=== PATIENT | male | born 1975 | race Caucasian/White ===

== ENCOUNTER 2020-09-25 07:16 | Inpatient (IN) | payer BC ==
[2020-09-25 07:58] LABS: #Monocytes 0.2 10x3/uL (0.0-1.1); #Neutrophils 3.4 10x3/uL (1.5-8.4); %Basophils 0.2 % (0.0-2.0); %Lymphocytes 32.2 % (18.0-47.0); %Monocytes 2.9 % (0.0-10.0); %Neutrophils 64.3 % (40.0-75.0); Hemoglobin 14.9 g/dL (13.5-17.5); Mean Corpuscular HGB CONC 33.6 g/dL (32.0-36.0); Mean Corpuscular Volume 86.4 fl (81.2-95.1); Mean Platelet Volume 11.6 fl (7.4-10.4); Platelet Count 142 10x3/uL (150-450); RBC Distribution Width 13.5 % (11.5-14.5); Red Blood Cell (RBC) Count 5.14 10x6/uL (4.32-5.72); White Blood Cell (WBC) Count 5.3 10x3/uL (3.5-10.5)
[2020-09-25 08:09] LABS: ALT (SGPT) 66 U/L (8-55); AST (SGOT) 60 U/L (5-34); Albumin 4.1 g/dL (3.5-5.0); Alkaline Phosphatase 61 U/L (40-110); Anion Gap 20 mmol/L (10-20); BUN (Urea Nitrogen) 42 mg/dL (8.9-20.6); Bilirubin, Total 0.4 mg/dL (0.2-1.2); Calc. Creatinine Clearance 0 mL/min (70-130); Calcium 8.9 mg/dL (7.8-10.44); Carbon Dioxide 20 mmol/L (22-29); Chloride 101 mmol/L (98-107); Glucose 221 mg/dL (70-105); Protein, Total 7.1 g/dL (6.0-8.3); Sodium 136 mmol/L (136-145)
[2020-09-25] MEDS ORDERED: Ascorbic Acid 500 mg Chewable Tablet PO SCH (13:00)
[2020-09-25] MEDS ORDERED: Zinc Sulfate 220 MG CAP PO SCH (13:00)
[2020-09-25] MEDS ORDERED: Heparin 5,000 UNITS/ML VIAL SC SCH (13:00)
[2020-09-25] MEDS ORDERED: Thiamine 100 MG TAB PO SCH (13:00)
[2020-09-25] MEDS ORDERED: Cholecalciferol (Vitamin D3) 400 UNITS TAB PO SCH (13:00)
[2020-09-25] MEDS: Dexamethasone Sod Phosphate 6 MG in Sodium Chloride 0.9% 50 ML IVPB SCH (14:42)
[2020-09-25 17:15] LABS: Hemoglobin A1c 7.5 % (4.0-6.0)
[2020-09-25] MEDS ORDERED: Dextrose 50% Abboject 50 ML SYRINGE SLOW IVP PRN (17:38)
[2020-09-25] MEDS ORDERED: Insulin Regular 300 UNITS/3 ML VIAL SC PRN (17:38)
[2020-09-25] MEDS ORDERED: Dextrose 5% in Water 1,000 ML IV PRN (17:38)
[2020-09-25] MEDS ORDERED: TADALAFIL 2.5 MG PO PRN (18:18)
[2020-09-25] MEDS: Famotidine/PF 20 mg/2ml Vial SLOW IVP SCH (20:39)
[2020-09-25] MEDS: Heparin 5,000 UNITS/ML VIAL SC SCH (20:55)
[2020-09-25] MEDS ORDERED: guaiFENesin/DM ER PO SCH (21:00)
[2020-09-25] MEDS: Insulin Regular 300 UNITS/3 ML VIAL SC PRN (22:20)
[2020-09-25] MEDS: Acetaminophen 325 MG TAB PO PRN (22:20)
[2020-09-25] MEDS: Guaifenesin DM 100-10/5 ML UDCUP PO PRN (22:23)
[2020-09-26] MEDS: HumaLOG 300 UNITS/3 ML VIAL SC PRN ×4 (05:30→21:40)
[2020-09-26 05:49] LABS: Anion Gap 16 mmol/L (10-20); BUN (Urea Nitrogen) 39 mg/dL (8.9-20.6); Calc. Creatinine Clearance 61 mL/min (70-130); Calcium 8.5 mg/dL (7.8-10.44); Carbon Dioxide 19 mmol/L (22-29); Chloride 103 mmol/L (98-107); Glucose 338 mg/dL (70-105); Potassium 5.2 mmol/L (3.5-5.1); Sodium 133 mmol/L (136-145)
[2020-09-26] MEDS ORDERED: REMDESIVIR 200 MG in Sodium Chloride 0.9% 250 ML 210 ML IV SCH (09:00)
[2020-09-26] MEDS: Zinc Sulfate 220 MG CAP PO SCH (09:18)
[2020-09-26] MEDS: Atorvastatin Calcium 20 MG TAB PO SCH (09:18)
[2020-09-26] MEDS: Ascorbic Acid 500 mg Chewable Tablet PO SCH (09:18)
[2020-09-26] MEDS: Thiamine 100 MG TAB PO SCH (09:18)
[2020-09-26] MEDS: Famotidine/PF 20 mg/2ml Vial SLOW IVP SCH ×2 (09:18→20:24)
[2020-09-26] MEDS: Heparin 5,000 UNITS/ML VIAL SC SCH ×3 (09:19→20:23)
[2020-09-26] MEDS: Cholecalciferol (Vitamin D3) 400 UNITS TAB PO SCH (09:19)
[2020-09-26] MEDS: Dexamethasone Sod Phosphate 6 MG in Sodium Chloride 0.9% 50 ML IVPB SCH (14:50)
[2020-09-26] MEDS ORDERED: guaiFENesin/DM ER PO SCH (21:00)
[2020-09-26] MEDS: Insulin Regular 300 UNITS/3 ML VIAL SC PRN (21:10)
[2020-09-26] MEDS ORDERED: Sodium Chloride 0.9% 500 ML IVPB SCH (23:30)
[2020-09-26] MEDS ORDERED: Insulin Regular 300 UNITS/3 ML VIAL SC SCH (23:45)
[2020-09-26] MEDS: Guaifenesin DM 100-10/5 ML UDCUP PO PRN (23:49)
[2020-09-27] MEDS ORDERED: HumaLOG 300 UNITS/3 ML VIAL SC SCH (03:45)
[2020-09-27 08:14] LABS: Anion Gap 17 mmol/L (10-20); BUN (Urea Nitrogen) 39 mg/dL (8.9-20.6); Calc. Creatinine Clearance 69 mL/min (70-130); Calcium 8.8 mg/dL (7.8-10.44); Carbon Dioxide 21 mmol/L (22-29); Chloride 105 mmol/L (98-107); Glucose 193 mg/dL (70-105); Potassium 4.5 mmol/L (3.5-5.1); Sodium 138 mmol/L (136-145)
[2020-09-27] MEDS: Acetaminophen 325 MG TAB PO PRN ×2 (08:37→15:32)
[2020-09-27] MEDS: Cholecalciferol (Vitamin D3) 400 UNITS TAB PO SCH (08:37)
[2020-09-27] MEDS: Thiamine 100 MG TAB PO SCH (08:38)
[2020-09-27] MEDS: Atorvastatin Calcium 20 MG TAB PO SCH (08:38)
[2020-09-27] MEDS: Ascorbic Acid 500 mg Chewable Tablet PO SCH (08:38)
[2020-09-27] MEDS: Famotidine/PF 20 mg/2ml Vial SLOW IVP SCH ×2 (08:38→20:52)
[2020-09-27] MEDS: Heparin 5,000 UNITS/ML VIAL SC SCH ×3 (08:38→20:52)
[2020-09-27] MEDS: Zinc Sulfate 220 MG CAP PO SCH (08:41)
[2020-09-27] MEDS: guaiFENesin/DM ER PO SCH (08:43)
[2020-09-27] MEDS: REMDESIVIR 100 MG in Sodium Chloride 0.9% 250 ML 230 ML IV SCH (10:09)
[2020-09-27] MEDS: HumaLOG 300 UNITS/3 ML VIAL SC PRN (13:39)
[2020-09-27] MEDS: Dexamethasone Sod Phosphate 6 MG in Sodium Chloride 0.9% 50 ML IVPB SCH (13:48)
[2020-09-27] MEDS ORDERED: Lantus 1000 UNITS/10 ML VIAL SC SCH ×2 (15:30→21:00)
[2020-09-27] MEDS: Guaifenesin DM 100-10/5 ML UDCUP PO PRN ×2 (15:32→20:52)
[2020-09-27] MEDS: Insulin Regular 300 UNITS/3 ML VIAL SC PRN (21:00)
[2020-09-28] MEDS: guaiFENesin/DM ER PO SCH ×3 (00:30→20:48)
[2020-09-28] MEDS: Guaifenesin DM 100-10/5 ML UDCUP PO PRN ×2 (04:30→09:14)
[2020-09-28] MEDS ORDERED: HumaLOG 300 UNITS/3 ML VIAL SC SCH (05:00)
[2020-09-28 05:52] LABS: Anion Gap 18 mmol/L (10-20); BUN (Urea Nitrogen) 37 mg/dL (8.9-20.6); Calc. Creatinine Clearance 72 mL/min (70-130); Carbon Dioxide 19 mmol/L (22-29); Chloride 103 mmol/L (98-107); Glucose 362 mg/dL (70-105); Potassium 4.7 mmol/L (3.5-5.1); Sodium 135 mmol/L (136-145)
[2020-09-28 05:53] LABS: Calcium 8.9 mg/dL (7.8-10.44)
[2020-09-28] MEDS: Benzonatate 100 MG CAP PO PRN (07:30)
[2020-09-28] MEDS: REMDESIVIR 100 MG in Sodium Chloride 0.9% 250 ML 230 ML IV SCH (09:14)
[2020-09-28] MEDS: Ascorbic Acid 500 mg Chewable Tablet PO SCH (09:15)
[2020-09-28] MEDS: Zinc Sulfate 220 MG CAP PO SCH (09:15)
[2020-09-28] MEDS: Famotidine/PF 20 mg/2ml Vial SLOW IVP SCH ×2 (09:15→20:47)
[2020-09-28] MEDS: Heparin 5,000 UNITS/ML VIAL SC SCH ×3 (09:15→21:00)
[2020-09-28] MEDS: Thiamine 100 MG TAB PO SCH (09:15)
[2020-09-28] MEDS: Cholecalciferol (Vitamin D3) 400 UNITS TAB PO SCH (09:15)
[2020-09-28] MEDS: Atorvastatin Calcium 20 MG TAB PO SCH (09:15)
[2020-09-28] MEDS: Lantus 1000 UNITS/10 ML VIAL SC SCH (09:15)
[2020-09-28] MEDS: Dexamethasone Sod Phosphate 6 MG in Sodium Chloride 0.9% 50 ML IVPB SCH (12:08)
[2020-09-28] MEDS: Insulin Regular 300 UNITS/3 ML VIAL SC PRN (21:05)
[2020-09-29] MEDS ORDERED: Insulin Regular 300 UNITS/3 ML VIAL IVP SCH (01:45)
[2020-09-29] MEDS: HumaLOG 300 UNITS/3 ML VIAL SC PRN ×3 (05:00→20:48)
[2020-09-29 06:04] LABS: Anion Gap 16 mmol/L (10-20); BUN (Urea Nitrogen) 35 mg/dL (8.9-20.6); Calc. Creatinine Clearance 87 mL/min (70-130); Calcium 9.3 mg/dL (7.8-10.44); Carbon Dioxide 21 mmol/L (22-29); Chloride 103 mmol/L (98-107); Glucose 283 mg/dL (70-105); Potassium 4.5 mmol/L (3.5-5.1); Sodium 135 mmol/L (136-145)
[2020-09-29] MEDS: Atorvastatin Calcium 20 MG TAB PO SCH (09:12)
[2020-09-29] MEDS: guaiFENesin/DM ER PO SCH ×2 (09:12→20:33)
[2020-09-29] MEDS: Guaifenesin DM 100-10/5 ML UDCUP PO PRN ×2 (09:12→14:06)
[2020-09-29] MEDS: Zinc Sulfate 220 MG CAP PO SCH (09:12)
[2020-09-29] MEDS: Cholecalciferol (Vitamin D3) 400 UNITS TAB PO SCH (09:12)
[2020-09-29] MEDS: Ascorbic Acid 500 mg Chewable Tablet PO SCH (09:12)
[2020-09-29] MEDS: Heparin 5,000 UNITS/ML VIAL SC SCH ×3 (09:12→20:35)
[2020-09-29] MEDS: Thiamine 100 MG TAB PO SCH (09:12)
[2020-09-29] MEDS: Lantus 1000 UNITS/10 ML VIAL SC SCH (09:12)
[2020-09-29] MEDS: REMDESIVIR 100 MG in Sodium Chloride 0.9% 250 ML 230 ML IV SCH (09:13)
[2020-09-29] MEDS: Famotidine/PF 20 mg/2ml Vial SLOW IVP SCH ×2 (09:14→20:33)
[2020-09-29] MEDS ORDERED: Lantus 1000 UNITS/10 ML VIAL SC SCH (12:30)
[2020-09-29] MEDS: Dexamethasone Sod Phosphate 6 MG in Sodium Chloride 0.9% 50 ML IVPB SCH (14:03)
[2020-09-29] MEDS ORDERED: Melatonin 3 MG TAB PO SCH (23:30)
[2020-09-30] MEDS ORDERED: diphenhydrAMINE 25 MG CAP PO SCH ×2 (04:45→21:00)
[2020-09-30] MEDS: Zinc Sulfate 220 MG CAP PO SCH (09:26)
[2020-09-30] MEDS: Ascorbic Acid 500 mg Chewable Tablet PO SCH (09:26)
[2020-09-30] MEDS: Cholecalciferol (Vitamin D3) 400 UNITS TAB PO SCH (09:26)
[2020-09-30] MEDS: Thiamine 100 MG TAB PO SCH (09:27)
[2020-09-30] MEDS: Famotidine/PF 20 mg/2ml Vial SLOW IVP SCH ×2 (09:27→20:54)
[2020-09-30] MEDS: Atorvastatin Calcium 20 MG TAB PO SCH (09:27)
[2020-09-30] MEDS: Heparin 5,000 UNITS/ML VIAL SC SCH ×3 (09:27→20:55)
[2020-09-30] MEDS: REMDESIVIR 100 MG in Sodium Chloride 0.9% 250 ML 230 ML IV SCH (09:27)
[2020-09-30] MEDS: guaiFENesin/DM ER PO SCH ×2 (09:28→20:55)
[2020-09-30] MEDS: Lantus 1000 UNITS/10 ML VIAL SC SCH (09:28)
[2020-09-30 10:26] LABS: Hemoglobin 14.9 g/dL (13.5-17.5); Mean Corpuscular HGB CONC 34.1 g/dL (32.0-36.0); Mean Corpuscular Hemoglobin 28.6 pg (27.0-33.0); Mean Corpuscular Volume 83.9 fl (81.2-95.1); Mean Platelet Volume 10.5 fl (7.4-10.4); Platelet Count 353 10x3/uL (150-450); RBC Distribution Width 13.3 % (11.5-14.5); Red Blood Cell (RBC) Count 5.21 10x6/uL (4.32-5.72); White Blood Cell (WBC) Count 5.9 10x3/uL (3.5-10.5)
[2020-09-30 10:40] LABS: Anion Gap 16 mmol/L (10-20); BUN (Urea Nitrogen) 37 mg/dL (8.9-20.6); Calc. Creatinine Clearance 85 mL/min (70-130); Calcium 9.4 mg/dL (7.8-10.44); Carbon Dioxide 20 mmol/L (22-29); Chloride 105 mmol/L (98-107); Glucose 254 mg/dL (70-105); Potassium 4.2 mmol/L (3.5-5.1); Sodium 137 mmol/L (136-145)
[2020-09-30 11:45] LABS: Lymphocytes 11 % (21-51); Monocytes 9 % (0-10); Neutrophil 76 % (42-75); Reactive Lymphocytes 4 % (0-10)
[2020-09-30 11:55] LABS: MDiff Complete? YES; Manual Diff?? YES
[2020-09-30] MEDS: Dexamethasone Sod Phosphate 6 MG in Sodium Chloride 0.9% 50 ML IVPB SCH (14:34)
[2020-09-30] MEDS: HumaLOG 300 UNITS/3 ML VIAL SC PRN ×2 (19:00→21:08)
[2020-10-01 06:29] LABS: Hemoglobin 15.1 g/dL (13.5-17.5); Mean Corpuscular HGB CONC 34.1 g/dL (32.0-36.0); Mean Corpuscular Hemoglobin 28.7 pg (27.0-33.0); Mean Corpuscular Volume 84.1 fl (81.2-95.1); Mean Platelet Volume 10.4 fl (7.4-10.4); Platelet Count 416 10x3/uL (150-450); RBC Distribution Width 13.3 % (11.5-14.5); Red Blood Cell (RBC) Count 5.27 10x6/uL (4.32-5.72); White Blood Cell (WBC) Count 6.6 10x3/uL (3.5-10.5)
[2020-10-01] MEDS: HumaLOG 300 UNITS/3 ML VIAL SC PRN ×4 (06:33→21:14)
[2020-10-01 06:40] LABS: Anion Gap 17 mmol/L (10-20); BUN (Urea Nitrogen) 35 mg/dL (8.9-20.6); Calc. Creatinine Clearance 87 mL/min (70-130); Calcium 9.5 mg/dL (7.8-10.44); Carbon Dioxide 21 mmol/L (22-29); Chloride 104 mmol/L (98-107); Glucose 210 mg/dL (70-105); Potassium 4.3 mmol/L (3.5-5.1); Sodium 138 mmol/L (136-145)
[2020-10-01 09:02] LABS: Lymphocytes 22 % (21-51); MDiff Complete? YES; Monocytes 11 % (0-10); Neutrophil 64 % (42-75); Reactive Lymphocytes 3 % (0-10)
[2020-10-01 09:03] LABS: Platelet Morphology Comment Appears Adequate
[2020-10-01] MEDS: Famotidine/PF 20 mg/2ml Vial SLOW IVP SCH ×2 (09:21→20:57)
[2020-10-01] MEDS: Cholecalciferol (Vitamin D3) 400 UNITS TAB PO SCH (09:21)
[2020-10-01] MEDS: guaiFENesin/DM ER PO SCH ×2 (09:21→20:56)
[2020-10-01] MEDS: Heparin 5,000 UNITS/ML VIAL SC SCH ×3 (09:21→20:56)
[2020-10-01] MEDS: Thiamine 100 MG TAB PO SCH (09:21)
[2020-10-01] MEDS: Atorvastatin Calcium 20 MG TAB PO SCH (09:21)
[2020-10-01] MEDS: Ascorbic Acid 500 mg Chewable Tablet PO SCH (09:21)
[2020-10-01] MEDS: Lantus 1000 UNITS/10 ML VIAL SC SCH (09:22)
[2020-10-01] MEDS: Zinc Sulfate 220 MG CAP PO SCH (09:24)
[2020-10-01] MEDS: Dexamethasone Sod Phosphate 6 MG in Sodium Chloride 0.9% 50 ML IVPB SCH (13:50)
[2020-10-01] MEDS: metFORMIN XR 500 MG TAB PO SCH (17:32)
[2020-10-02] MEDS ORDERED: Lorazepam 2 MG/ML VIAL SLOW IVP SCH (00:45)
[2020-10-02 05:40] LABS: #Basophils 0.1 10x3/uL (0.0-0.2); #Monocytes 0.9 10x3/uL (0.0-1.1); #Neutrophils 5.9 10x3/uL (1.5-8.4); %Basophils 0.7 % (0.0-2.0); %Lymphocytes 15.6 % (18.0-47.0); %Monocytes 10.3 % (0.0-10.0); %Neutrophils 68.7 % (40.0-75.0); Hemoglobin 14.6 g/dL (13.5-17.5); Mean Corpuscular Hemoglobin 28.8 pg (27.0-33.0); Mean Corpuscular Volume 84.8 fl (81.2-95.1); Mean Platelet Volume 10.1 fl (7.4-10.4); Platelet Count 453 10x3/uL (150-450); RBC Distribution Width 13.5 % (11.5-14.5); Red Blood Cell (RBC) Count 5.07 10x6/uL (4.32-5.72); White Blood Cell (WBC) Count 8.5 10x3/uL (3.5-10.5)
[2020-10-02 05:57] LABS: Anion Gap 15 mmol/L (10-20); BUN (Urea Nitrogen) 33 mg/dL (8.9-20.6); Calc. Creatinine Clearance 83 mL/min (70-130); Calcium 9.5 mg/dL (7.8-10.44); Carbon Dioxide 23 mmol/L (22-29); Chloride 102 mmol/L (98-107); Glucose 207 mg/dL (70-105); Potassium 4.7 mmol/L (3.5-5.1); Sodium 135 mmol/L (136-145)
[2020-10-02] MEDS: HumaLOG 300 UNITS/3 ML VIAL SC PRN ×2 (06:44→18:32)
[2020-10-02] MEDS: Ascorbic Acid 500 mg Chewable Tablet PO SCH (08:12)
[2020-10-02] MEDS: Cholecalciferol (Vitamin D3) 400 UNITS TAB PO SCH (08:12)
[2020-10-02] MEDS: Atorvastatin Calcium 20 MG TAB PO SCH (08:12)
[2020-10-02] MEDS: Zinc Sulfate 220 MG CAP PO SCH (08:12)
[2020-10-02] MEDS: Lisinopril 10 MG TAB PO SCH (08:12)
[2020-10-02] MEDS: Thiamine 100 MG TAB PO SCH (08:12)
[2020-10-02] MEDS: Famotidine/PF 20 mg/2ml Vial SLOW IVP SCH ×2 (08:13→20:18)
[2020-10-02] MEDS: guaiFENesin/DM ER PO SCH ×2 (08:40→20:18)
[2020-10-02] MEDS: metFORMIN XR 500 MG TAB PO SCH ×2 (08:47→18:11)
[2020-10-02] MEDS: Benzonatate 100 MG CAP PO PRN ×2 (08:48→20:19)
[2020-10-02] MEDS: Lorazepam 0.5 MG TAB PO PRN ×2 (08:55→20:19)
[2020-10-02] MEDS: Heparin 5,000 UNITS/ML VIAL SC SCH ×3 (08:56→20:18)
[2020-10-02] MEDS: Lantus 1000 UNITS/10 ML VIAL SC SCH (09:05)
[2020-10-02] MEDS: Dexamethasone Sod Phosphate 6 MG in Sodium Chloride 0.9% 50 ML IVPB SCH (12:41)
[2020-10-03 05:40] LABS: #Basophils 0.1 10x3/uL (0.0-0.2); #Monocytes 1.1 10x3/uL (0.0-1.1); #Neutrophils 7.3 10x3/uL (1.5-8.4); %Basophils 0.8 % (0.0-2.0); %Lymphocytes 15.9 % (18.0-47.0); %Monocytes 10.3 % (0.0-10.0); Hemoglobin 14.5 g/dL (13.5-17.5); Mean Corpuscular HGB CONC 33.9 g/dL (32.0-36.0); Mean Corpuscular Hemoglobin 28.4 pg (27.0-33.0); Mean Corpuscular Volume 83.8 fl (81.2-95.1); Mean Platelet Volume 9.5 fl (7.4-10.4); Platelet Count 481 10x3/uL (150-450); RBC Distribution Width 13.8 % (11.5-14.5); Red Blood Cell (RBC) Count 5.11 10x6/uL (4.32-5.72); White Blood Cell (WBC) Count 10.7 10x3/uL (3.5-10.5)
[2020-10-03 06:00] LABS: Anion Gap 13 mmol/L (10-20); BUN (Urea Nitrogen) 39 mg/dL (8.9-20.6); Calc. Creatinine Clearance 87 mL/min (70-130); Calcium 9.4 mg/dL (7.8-10.44); Carbon Dioxide 22 mmol/L (22-29); Chloride 104 mmol/L (98-107); Glucose 151 mg/dL (70-105); Magnesium 1.8 mg/dL (1.6-2.6); Potassium 4.4 mmol/L (3.5-5.1); Sodium 135 mmol/L (136-145)
[2020-10-03] MEDS: HumaLOG 300 UNITS/3 ML VIAL SC PRN ×3 (06:10→21:21)
[2020-10-03] MEDS: Lorazepam 0.5 MG TAB PO PRN ×3 (08:08→20:32)
[2020-10-03] MEDS: Lisinopril 10 MG TAB PO SCH (08:09)
[2020-10-03] MEDS: metFORMIN XR 500 MG TAB PO SCH ×2 (08:09→16:43)
[2020-10-03] MEDS: Zinc Sulfate 220 MG CAP PO SCH (08:10)
[2020-10-03] MEDS: Heparin 5,000 UNITS/ML VIAL SC SCH ×3 (08:10→20:31)
[2020-10-03] MEDS: Ascorbic Acid 500 mg Chewable Tablet PO SCH (08:10)
[2020-10-03] MEDS: Cholecalciferol (Vitamin D3) 400 UNITS TAB PO SCH (08:10)
[2020-10-03] MEDS: Thiamine 100 MG TAB PO SCH (08:10)
[2020-10-03] MEDS: Famotidine/PF 20 mg/2ml Vial SLOW IVP SCH ×2 (08:10→20:31)
[2020-10-03] MEDS: Atorvastatin Calcium 20 MG TAB PO SCH (08:10)
[2020-10-03] MEDS: guaiFENesin/DM ER PO SCH ×2 (08:11→20:31)
[2020-10-03] MEDS: Lantus 1000 UNITS/10 ML VIAL SC SCH (08:41)
[2020-10-03] MEDS: Dexamethasone Sod Phosphate 6 MG in Sodium Chloride 0.9% 50 ML IVPB SCH (12:10)
[2020-10-03] MEDS ORDERED: Sodium Chloride 0.65% Nasal 44 ML BOT EA NARE PRN (16:32)
[2020-10-03] MEDS: Guaifenesin DM 100-10/5 ML UDCUP PO PRN (17:36)
[2020-10-03] MEDS: Benzonatate 100 MG CAP PO PRN (20:32)
[2020-10-04 07:44] LABS: Hemoglobin 14.3 g/dL (13.5-17.5); Mean Corpuscular HGB CONC 32.9 g/dL (32.0-36.0); Mean Corpuscular Hemoglobin 28.3 pg (27.0-33.0); Mean Corpuscular Volume 86.1 fl (81.2-95.1); Mean Platelet Volume 9.6 fl (7.4-10.4); Platelet Count 514 10x3/uL (150-450); RBC Distribution Width 13.7 % (11.5-14.5); Red Blood Cell (RBC) Count 5.05 10x6/uL (4.32-5.72); White Blood Cell (WBC) Count 11.3 10x3/uL (3.5-10.5)
[2020-10-04 07:50] LABS: Anion Gap 15 mmol/L (10-20); BUN (Urea Nitrogen) 35 mg/dL (8.9-20.6); Calc. Creatinine Clearance 95 mL/min (70-130); Calcium 9.5 mg/dL (7.8-10.44); Carbon Dioxide 24 mmol/L (22-29); Chloride 101 mmol/L (98-107); Glucose 82 mg/dL (70-105); Potassium 4.7 mmol/L (3.5-5.1); Sodium 135 mmol/L (136-145)
[2020-10-04 08:01] LABS: MDiff Complete? YES
[2020-10-04 08:09] LABS: Lymphocytes 19 % (21-51); Monocytes 8 % (0-10); Neutrophil 71 % (42-75); Reactive Lymphocytes 2 % (0-10)
[2020-10-04 08:10] LABS: Platelet Morphology Comment Appears Increased
[2020-10-04 08:11] LABS: RBC Morphology Normal
[2020-10-04] MEDS: Famotidine/PF 20 mg/2ml Vial SLOW IVP SCH ×2 (09:12→20:36)
[2020-10-04] MEDS: Zinc Sulfate 220 MG CAP PO SCH (09:12)
[2020-10-04] MEDS: Heparin 5,000 UNITS/ML VIAL SC SCH ×3 (09:12→20:39)
[2020-10-04] MEDS: Cholecalciferol (Vitamin D3) 400 UNITS TAB PO SCH (09:12)
[2020-10-04] MEDS: Thiamine 100 MG TAB PO SCH (09:13)
[2020-10-04] MEDS: Lisinopril 10 MG TAB PO SCH (09:13)
[2020-10-04] MEDS: metFORMIN XR 500 MG TAB PO SCH ×2 (09:13→17:15)
[2020-10-04] MEDS: Ascorbic Acid 500 mg Chewable Tablet PO SCH (09:13)
[2020-10-04] MEDS: Atorvastatin Calcium 20 MG TAB PO SCH (09:13)
[2020-10-04] MEDS: Lantus 1000 UNITS/10 ML VIAL SC SCH (09:14)
[2020-10-04] MEDS: guaiFENesin/DM ER PO SCH ×2 (09:16→20:38)
[2020-10-04] MEDS: Dexamethasone Sod Phosphate 6 MG in Sodium Chloride 0.9% 50 ML IVPB SCH (12:17)
[2020-10-04] MEDS: Guaifenesin DM 100-10/5 ML UDCUP PO PRN (15:41)
[2020-10-04] MEDS: Lorazepam 0.5 MG TAB PO PRN (15:58)
[2020-10-04] MEDS: HumaLOG 300 UNITS/3 ML VIAL SC PRN ×2 (17:34→20:52)
[2020-10-04 20:19] VITALS: TEMP 97.7
[2020-10-05 05:52] LABS: Hemoglobin 13.9 g/dL (13.5-17.5); Mean Corpuscular Hemoglobin 28.6 pg (27.0-33.0); Mean Corpuscular Volume 84.2 fl (81.2-95.1); Mean Platelet Volume 9.4 fl (7.4-10.4); Platelet Count 497 10x3/uL (150-450); RBC Distribution Width 13.6 % (11.5-14.5); Red Blood Cell (RBC) Count 4.86 10x6/uL (4.32-5.72); White Blood Cell (WBC) Count 9.1 10x3/uL (3.5-10.5)
[2020-10-05 06:06] LABS: Anion Gap 15 mmol/L (10-20); BUN (Urea Nitrogen) 33 mg/dL (8.9-20.6); Calc. Creatinine Clearance 88 mL/min (70-130); Calcium 9.5 mg/dL (7.8-10.44); Carbon Dioxide 22 mmol/L (22-29); Chloride 102 mmol/L (98-107); Glucose 90 mg/dL (70-105); MDiff Complete? YES; Potassium 4.7 mmol/L (3.5-5.1); Sodium 134 mmol/L (136-145)
[2020-10-05 06:17] LABS: Band 2 % (5-11); Eosinophils 1 % (0-10); Lymphocytes 12 % (21-51); Metamyelocyte 2 % (0-0); Monocytes 4 % (0-10); Neutrophil 73 % (42-75); Reactive Lymphocytes 6 % (0-10)
[2020-10-05 08:26] VITALS: BP 110/71
[2020-10-05 09:02] VITALS: BMI 30.1
[2020-10-05] MEDS: Cholecalciferol (Vitamin D3) 400 UNITS TAB PO SCH (09:02)
[2020-10-05] MEDS: Lisinopril 10 MG TAB PO SCH (09:02)
[2020-10-05] MEDS: Zinc Sulfate 220 MG CAP PO SCH (09:02)
[2020-10-05] MEDS: Famotidine/PF 20 mg/2ml Vial SLOW IVP SCH (09:02)
[2020-10-05] MEDS: Atorvastatin Calcium 20 MG TAB PO SCH (09:02)
[2020-10-05] MEDS: metFORMIN XR 500 MG TAB PO SCH (09:02)
[2020-10-05] MEDS: Heparin 5,000 UNITS/ML VIAL SC SCH (09:03)
[2020-10-05] MEDS: guaiFENesin/DM ER PO SCH (09:03)
[2020-10-05] MEDS: Ascorbic Acid 500 mg Chewable Tablet PO SCH (09:03)
[2020-10-05] MEDS: Thiamine 100 MG TAB PO SCH (09:03)
[2020-10-05] MEDS: Lantus 1000 UNITS/10 ML VIAL SC SCH (09:03)
== END 2020-10-05 11:01 | disposition home or self-care (01) | DRG 177 ==
LOC: CSHERS 07:16 → CSHTELE 11:05
PROVIDERS: ADMIT Internal Medicine; ATTEND Hospitalist
PROC: XW033E5 Introduction of Remdesivir Anti-infective into Peripheral Vein, Percutaneous Approach, New Technology Group 5 (ICD-10-PCS; principal; 2020-09-25)
PROC: 8E0ZXY6 Isolation (ICD-10-PCS; 2020-09-25)
DX: U07.1 COVID-19 (principal); J12.82 Pneumonia due to coronavirus disease 2019; J96.01 Acute respiratory failure with hypoxia; N17.9 Acute kidney failure, unspecified; Q60.0 Renal agenesis, unilateral; E87.2 Acidosis; E87.1 Hypo-osmolality and hyponatremia; E86.0 Dehydration; E87.5 Hyperkalemia; E11.65 Type 2 diabetes mellitus with hyperglycemia; E11.22 Type 2 diabetes mellitus with diabetic chronic kidney disease; I12.9 Hypertensive chronic kidney disease with stage 1 through stage 4 chronic kidney disease, or unspecified chronic kidney disease; N18.30 Chronic kidney disease, stage 3 unspecified; F41.1 Generalized anxiety disorder; Z79.84 Long term (current) use of oral hypoglycemic drugs; Z79.899 Other long term (current) drug therapy; E78.00 Pure hypercholesterolemia, unspecified
CPT/HCPCS: 36415; 36416; 71045; 80048; 80053; 82728; 83036; 83605; 83735; 83880; 84145; 84484; 85025; 85379; 85652; 86140; 87040; 87070; 87149; 87205; 93005; 94640; 94760; 96365; 96366; J1644; J1815; J1956; J2060; J7030; J7050; Q0163; S0028